=== PATIENT | male | born 1990 | race Caucasian/White ===

== ENCOUNTER 2018-09-17 16:05 | Emergency (ER) | payer BC ==
--- NOTE | 2018-09-17 16:10 | EDM.PDOC ---
ED HPI GENERAL MEDICAL PROBLEM - General Chief Complaint: General Stated Complaint: ALLERGIC REACTION Time Seen by Provider: 09/17/18 16:06 - History of Present Illness INITIAL COMMENTS - FREE TEXT/NARRATIVE: HISTORY AND PHYSICAL: History of present illness: Patient is a 28-year-old white male presents with a concern of anxiety that began when he was at work he denies history of prior episodes. He equivocates regarding shortness of breath and chest pain no vomiting no diarrhea no other complaints he has used nicotine informal pouches he quit smoking 7 months prior he has no other medical problems Review of systems: As per history of present illness and below otherwise all systems reviewed and negative. Past medical history: As per history of present illness and as reviewed below otherwise noncontributory. Surgical history: As per history of present illness and as reviewed below otherwise noncontributory. Social history: No reported history of drug or alcohol abuse. Family history: As per history of present illness and as reviewed below otherwise noncontributory. Physical exam: HEENT: Atraumatic, normocephalic, pupils reactive, negative for conjunctival pallor or scleral icterus, mucous membranes moist, throat clear, neck supple, nontender, trachea midline. Lungs: Clear to auscultation, breath sounds equal bilaterally, chest nontender. Heart: S1S2, regular, negative for clicks, rubs, or JVD. Abdomen: Soft, nondistended, nontender. Negative for masses or hepatosplenomegaly. Negative for costovertebral tenderness. Pelvis: Stable nontender. Genitourinary: Deferred. Rectal: Deferred. Extremities: Atraumatic, negative for cords or calf pain. Neurovascular unremarkable. Neuro: Awake, alert, anxious, oriented. Cranial nerves II through XII unremarkable. Cerebellum unremarkable. Motor and sensory unremarkable throughout. Exam nonfocal. Diagnostics: oximetry chest x-ray EKG Therapeutics: None Impression: #1 medical screening exam Definitive disposition and diagnosis as appropriate pending reevaluation and review of above. - Related Data Allergies Allergy/AdvReac Type Severity Reaction Status Date / Time No Known Allergies Allergy Verified 12/29/15 21:27 Home Meds: Home Meds . [No Known Home Meds] 12/29/15 [History] Past Medical History HEENT History: Reports: None Cardiovascular History: Reports: None Respiratory History: Reports: None Gastrointestinal History: Reports: None Genitourinary History: Reports: None Musculoskeletal History: Reports: None Neurological History: Reports: None Psychiatric History: Reports: None Endocrine/Metabolic History: Reports: None Hematologic History: Reports: None Immunologic History: Reports: None Oncologic (Cancer) History: Reports: None Dermatologic History: Reports: None - Infectious Disease History Infectious Disease History: Reports: None - Past Surgical History Head Surgeries/Procedures: Reports: None HEENT Surgical History: Reports: None Cardiovascular Surgical History: Reports: None GI Surgical History: Reports: Appendectomy Male Surgical History: Reports: None Endocrine Surgical History: Reports: None Neurological Surgical History: Reports: None Musculoskeletal Surgical History: Reports: None ED ROS GENERAL - Review of Systems Review Of Systems: ROS reveals no pertinent complaints other than HPI. ED EXAM, GENERAL - Physical Exam Exam: See Below (See dictation) Course - Orders/Labs/Meds Orders: Active Orders 24 hr Category Date Time Status EKG Documentation Completion [RC] STAT Care 09/17/18 16:06 Ordered Pulse Oximetry [RC] ASDIRECTED Care 09/17/18 16:06 Ordered Chest 1V Frontal [CR] Stat Exams 09/17/18 16:07 Ordered Departure - Departure Time of Disposition: 16:09 Disposition: Home, Self-Care 01 Condition: Good Clinical Impression: Encounter for medical screening examination - Discharge Information Additional Instructions: The following information is given to patients seen in the emergency department who are being discharged to home. This information is to outline your options for follow-up care. We provide all patients seen in our emergency department with a follow-up referral. The need for follow-up, as well as the timing and circumstances, are variable depending upon the specifics of your emergency department visit. If you don't have a primary care physician on staff, we will provide you with a referral. We always advise you to contact your personal physician following an emergency department visit to inform them of the circumstance of the visit and for follow-up with them and/or the need for any referrals to a consulting specialist. The emergency department will also refer you to a specialist when appropriate. This referral assures that you have the opportunity for followup care with a specialist. All of these measure are taken in an effort to provide you with optimal care, which includes your followup. Under all circumstances we always encourage you to contact your private physician who remains a resource for coordinating your care. When calling for followup care, please make the office aware that this follow-up is from your recent emergency room visit. If for any reason you are refused follow-up, please contact the [facility] emergency department at and asked to speak to the emergency department charge nurse. [facility] [address] [place] [id number] Follow-up primary medical doctor and/or primary care above as needed as discussed return as needed as discussed - My Orders Last 24 Hours: My Active Orders 09/17/18 16:06 EKG Documentation Completion [RC] STAT Pulse Oximetry [RC] ASDIRECTED 09/17/18 16:07 Chest 1V Frontal [CR] Stat - Assessment/Plan Last 24 Hours: My Active Orders 09/17/18 16:06 EKG Documentation Completion [RC] STAT Pulse Oximetry [RC] ASDIRECTED 09/17/18 16:07 Chest 1V Frontal [CR] Stat
--- NOTE | 2018-09-17 17:27 | CR ---
Indication: Allergic reaction Technique: Chest 1 view Comparison: 12/29/2015. Findings/Impression: Cardiovascular and mediastinum: Heart size and vasculature are normal in caliber and appearance. Mediastinum is within normal limits. Lungs and pleural space: Lungs are clear. No sign of infiltrate or mass. No sign of pleural effusion. No pneumothorax. Bones and soft tissues: No significant findings. Dictated by Tristian Cm MD @ 09/17/2018 5:25:42 PM Dictated by: Tristian Cm MD @ 09/17/2018 17:25:47 (Electronically Signed)
[2018-09-17 18:47] VITALS: BP 129/78
== END 2018-09-17 17:55 | disposition home or self-care (01) ==
LOC: MW.ED 16:05
DX: Z13.9 Encounter for screening, unspecified (principal)
CPT/HCPCS: 71045; 71045-26; 93005; 99283; 99283-25

== ENCOUNTER 2021-12-16 21:52 | Emergency (ER) | payer BC, OTHER ==
[2021-12-17 01:08] VITALS: BP 128/74; PULSE 85
== END 2021-12-17 01:08 | disposition home or self-care (01) ==
LOC: MW.ED 21:52
DX: L03.811 Cellulitis of head [any part, except face] (principal); Z88.0 Allergy status to penicillin
CPT/HCPCS: 70450; 70450-26; 99283